=== PATIENT | female | born 1945 | race Caucasian/White ===

== ENCOUNTER 2023-01-17 11:33 | Inpatient (IN) ==
[2023-01-17] MEDS ORDERED: NS 0.9% 1000 ml BAG 1,000 ML IV ONE ×3 (11:51→13:55)
[2023-01-17 12:09] LABS: ABS Lymphocytes 1.1 10^3/uL (1.0-4.8); ABS Monocytes 0.3 10^3/uL (0.0-0.9); ABS Neutrophils 9.2 10^3/uL (1.5-7.6); ABS Nucleated RBC 0.02 10^3/ul; Eosinophil % 0.1 %; Hematocrit 39.9 % (35-45); Hemoglobin 13.9 g/dL (11.5-14.3); Lymphocyte % 10.2 %; Mean Corpuscular Hemoglobin 32.8 pg (27-33); Mean Corpuscular Hgb Conc 34.9 g/dL (31-36); Mean Corpuscular Volume 93.9 fL (80-97); Mean Platelet Volume 7.8 fL (7.5-11.2); Nucleated Red Blood Cells % 0.2 /100 WBC (0.0-0.4); Platelet Count 341 10^3/uL (150-450); Red Blood Count 4.24 10^6/uL (3.63-4.92); Red Cell Distribution Width 13.2 % (12-17); White Blood Count 10.6 10^3/uL (3.8-11.8)
[2023-01-17] MEDS ORDERED: Vancomycin 1,000 MG in NS 0.9% 250 ml 250 ML IVPB ONE (12:33)
[2023-01-17] MEDS ORDERED: Cefepime 1 GM in Dextrose 1 GM/50 ML BAG IV ONE (12:33)
[2023-01-17 12:49] LABS: INR 1.93 (0.88-1.18)
[2023-01-17 13:28] LABS: Urine Appearance Turbid; Urine Bilirubin Negative (Negative); Urine Blood 2+ (Negative); Urine Color Yellow; Urine Glucose 2+(150 mg/dL) (Negative); Urine Ketones Trace (Negative); Urine Nitrite Negative (Negative); Urine Protein 2+(100 mg/dL) (Negative); Urine Specific Gravity 1.013 (1.002-1.030); Urine Urobilinogen Positive (Negative)
[2023-01-17 13:33] LABS: Urine Amorphous Crystals Present (Absent); Urine Bacteria 1+ (Absent); Urine Red Blood Cell 3+(>10/hpf) (Absent); Urine Squamous Epithelial Cell Present (Absent); Urine Transitional Epithelial Present (Absent); Urine White Blood Cell 3+(>20/hpf) (Absent)
[2023-01-17 13:35] LABS: Albumin 3.9 g/dL (3.2-5.2); Magnesium 1.9 mg/dL (1.9-2.7); Potassium 3.3 mmol/L (3.5-5.0); Total Bilirubin 0.9 mg/dL (0.2-1.0)
[2023-01-17 13:41] LABS: Albumin/Globulin Ratio 1.6 (1-3); Creatinine, Serum 1.03 mg/dL (0.51-0.95); Globulin 2.5 g/dL (2-4); Total Protein 6.4 g/dL (6.4-8.9); eGFR CKD-EPI 55.3 (>60)
[2023-01-17 13:59] LABS: High Sensitivity Troponin 1 Hr 17 pg/mL (<15)
[2023-01-17 14:15] LABS: C Reactive Protein 2.34 mg/L (<8.01)
[2023-01-17] MEDS ORDERED: Lactated Ringers 1000 ml BAG 1,000 ML IV ONE (14:38)
[2023-01-17] MEDS ORDERED: Lactated Ringers 1000 ml BAG 1,000 ML IV SCH (15:00)
[2023-01-17] MEDS ORDERED: Magnesium Hydroxide LIQ 30 ML UDC PO PRN (19:20)
[2023-01-17] MEDS ORDERED: Remdesivir 100 mg Vial 200 MG in NS 0.9% 250 ml 210 ML IV ONE (19:57)
[2023-01-17] MEDS ORDERED: Vancomycin per Pharmacy 1 EA NOTE FOLLOW UP SCH (20:00)
[2023-01-17] MEDS ORDERED: Potassium Chloride LIQUID 20 MEQ/15 ML LIQUID PO ONE (20:21)
[2023-01-17 21:04] LABS: Calcium 9.3 mg/dL (8.6-10.3); Potassium 3.5 mmol/L (3.5-5.0)
[2023-01-17 21:10] LABS: Creatinine, Serum 0.84 mg/dL (0.51-0.95); eGFR CKD-EPI 70.6 (>60)
[2023-01-17 22:20] LABS: Osmolality Serum 276 mOsm/kg (275-295)
[2023-01-17 22:21] LABS: Urine Osmo 300 mOsm/kg (150-1150)
[2023-01-18 06:59] LABS: ABS Lymphocytes 0.8 10^3/uL (1.0-4.8); ABS Monocytes 0.7 10^3/uL (0.0-0.9); ABS Neutrophils 7.7 10^3/uL (1.5-7.6); Hematocrit 40.2 % (35-45); Mean Corpuscular Hemoglobin 32.9 pg (27-33); Mean Corpuscular Hgb Conc 34.9 g/dL (31-36); Mean Corpuscular Volume 94.4 fL (80-97); Platelet Count 303 10^3/uL (150-450); Red Blood Count 4.26 10^6/uL (3.63-4.92); Red Cell Distribution Width 13.7 % (12-17); White Blood Count 9.2 10^3/uL (3.8-11.8)
[2023-01-18 07:21] LABS: Albumin 3.8 g/dL (3.2-5.2); Albumin/Globulin Ratio 1.5 (1-3); Calcium 9.4 mg/dL (8.6-10.3); Creatinine, Serum 0.88 mg/dL (0.51-0.95); Globulin 2.5 g/dL (2-4); Magnesium 1.8 mg/dL (1.9-2.7); Potassium 3.8 mmol/L (3.5-5.0); Total Bilirubin 0.7 mg/dL (0.2-1.0); Total Protein 6.3 g/dL (6.4-8.9); eGFR CKD-EPI 66.8 (>60)
[2023-01-18] MEDS ORDERED: cefTRIAXone 1 gm/50 mL D5W 1 GM/50 ML BAG IV SCH (09:00)
[2023-01-18] MEDS ORDERED: Magnesium Sulfate IV 1GM/100ML 1 GM/100 ML BAG IV ONE (09:51)
[2023-01-18] MEDS ORDERED: NS 0.9% 50 ML 50 ML IVPB SCH (12:00)
[2023-01-18] MEDS: Cefepime 1 GM in Dextrose 1 GM/50 ML BAG IV SCH (17:22)
[2023-01-18] MEDS: Remdesivir 100 mg Vial 100 MG in NS 0.9% 250 ml 230 ML IV SCH (20:41)
[2023-01-19] MEDS: Cefepime 1 GM in Dextrose 1 GM/50 ML BAG IV SCH ×2 (04:42→16:34)
[2023-01-19] MEDS ORDERED: Magnesium Sulfate IV 1GM/100ML 1 GM/100 ML BAG IV ONE (07:31)
[2023-01-19 09:21] LABS: Albumin 3.7 g/dL (3.2-5.2); Albumin/Globulin Ratio 1.5 (1-3); Calcium 9.5 mg/dL (8.6-10.3); Creatinine, Serum 1.04 mg/dL (0.51-0.95); Globulin 2.5 g/dL (2-4); Potassium 3.7 mmol/L (3.5-5.0); Total Bilirubin 0.7 mg/dL (0.2-1.0); Total Protein 6.2 g/dL (6.4-8.9); eGFR CKD-EPI 54.7 (>60)
[2023-01-19] MEDS: Nystatin SUSPENSION 100,000 UNITS/ML UDC PO SCH ×3 (12:28→20:51)
[2023-01-19] MEDS ORDERED: NS 0.9% 1000 ml BAG 1,000 ML IV SCH (13:30)
[2023-01-19] MEDS: Remdesivir 100 mg Vial 100 MG in NS 0.9% 250 ml 230 ML IV SCH (21:17)
[2023-01-19] MEDS ORDERED: Prochlorperazine 5 mg/ml 2 ml VIAL (10 mg) IV ONE (22:54)
[2023-01-20] MEDS: Cefepime 1 GM in Dextrose 1 GM/50 ML BAG IV SCH ×2 (04:13→17:03)
[2023-01-20 07:10] LABS: Albumin 3.2 g/dL (3.2-5.2); Calcium 8.9 mg/dL (8.6-10.3); Potassium 3.7 mmol/L (3.5-5.0); Total Bilirubin 0.7 mg/dL (0.2-1.0)
[2023-01-20 07:16] LABS: Albumin/Globulin Ratio 1.6 (1-3); Creatinine, Serum 0.82 mg/dL (0.51-0.95); Total Protein 5.2 g/dL (6.4-8.9); eGFR CKD-EPI 72.7 (>60)
[2023-01-20] MEDS ORDERED: Potassium Chlor 10 meq TAB PO ONE (08:49)
[2023-01-20] MEDS: Nystatin SUSPENSION 100,000 UNITS/ML UDC PO SCH ×4 (09:25→21:54)
[2023-01-20] MEDS: Remdesivir 100 mg Vial 100 MG in NS 0.9% 250 ml 230 ML IV SCH (21:54)
[2023-01-21] MEDS: Cefepime 1 GM in Dextrose 1 GM/50 ML BAG IV SCH (04:11)
[2023-01-21 06:23] LABS: ABS Eosinophils 0.1 10^3/uL (0.0-0.5); ABS Monocytes 0.4 10^3/uL (0.0-0.9); ABS Neutrophils 4.5 10^3/uL (1.5-7.6); ABS Nucleated RBC 0.01 10^3/ul; Eosinophil % 1.2 %; Hematocrit 36.2 % (35-45); Hemoglobin 12.7 g/dL (11.5-14.3); Lymphocyte % 16.7 %; Mean Corpuscular Hemoglobin 32.5 pg (27-33); Mean Corpuscular Hgb Conc 35.2 g/dL (31-36); Mean Corpuscular Volume 92.1 fL (80-97); Mean Platelet Volume 8.6 fL (7.5-11.2); Nucleated Red Blood Cells % 0.1 /100 WBC (0.0-0.4); Platelet Count 216 10^3/uL (150-450); Red Blood Count 3.92 10^6/uL (3.63-4.92); Red Cell Distribution Width 13.8 % (12-17)
[2023-01-21 07:00] LABS: Albumin 3.1 g/dL (3.2-5.2); Calcium 8.7 mg/dL (8.6-10.3); Magnesium 1.9 mg/dL (1.9-2.7); Potassium 3.8 mmol/L (3.5-5.0); Total Bilirubin 0.7 mg/dL (0.2-1.0)
[2023-01-21 07:01] LABS: Albumin/Globulin Ratio 1.6 (1-3); Creatinine, Serum 0.82 mg/dL (0.51-0.95); Total Protein 5.1 g/dL (6.4-8.9); eGFR CKD-EPI 72.7 (>60)
[2023-01-21] MEDS ORDERED: Potassium Chlor 10 meq TAB PO ONE (08:49)
[2023-01-21] MEDS: Nystatin SUSPENSION 100,000 UNITS/ML UDC PO SCH ×2 (08:58→11:18)
[2023-01-21] MEDS ORDERED: Lactated Ringers 1000 ml BAG 1,000 ML IV ONE (10:44)
[2023-01-21 10:47] VITALS: BP 92/53
== END 2023-01-21 14:25 | DRG 871 ==
LOC: ED 11:33 → SUATTDRO 18:25 → EDHOLD 18:25 → MEDTELE 23:21
PROVIDERS: ADMIT Internal Medicine; ATTEND Internal Medicine